=== PATIENT | female | born 1950 | race Asian ===

== ENCOUNTER 2022-04-16 05:50 | Day surgery (SDC) | payer MEDICAID ==
[~2022-04-16] VITALS: Ht 152.4 cm; Wt 61.8 kg
[2022-04-16] MEDS ORDERED: BENZOCAINE 20% 50 MCG/SPRAY 57 GM TP ONE (05:51)
[2022-04-16] MEDS ORDERED: LIDOCAINE 2% 11 ML JELLY TP ONE (05:51)
[2022-04-16] MEDS ORDERED: LIDOCAINE 4% 50 ML SOLUTION TP ONE (05:51)
[2022-04-16] MEDS ORDERED: SODIUM CHLORIDE 0.9% 1,000 ML IV ONE (06:30)
[2022-04-16 06:41] LABS: COVID AG,FIA SOURCE NASOPHARYNGEAL
[2022-04-16] MEDS ORDERED: ATOR40TA28 PO (06:59)
[2022-04-16] MEDS ORDERED: SODIUM CHLORIDE 0.9% 1,000 ML ONE (07:35)
[2022-04-16] MEDS ORDERED: FentaNYL CITRATE PF 100 MCG/2 ML VIAL ONE (07:43)
[2022-04-16] MEDS ORDERED: MIDAZOLAM HCL 5 MG/ML VIAL ONE (07:43)
[2022-04-16] MEDS ORDERED: SODIUM CHLORIDE 0.9% 10 ML ONE (07:46)
[2022-04-16] MEDS ORDERED: MethylPREDNISolone SOD SUCC 125 MG/2 ML VIAL IVP ONE (09:15)
[2022-04-16] MEDS ORDERED: MethylPREDNISolone SOD SUCC 125 MG/2 ML VIAL ONE (09:29)
[2022-04-16] MEDS ORDERED: OXYGEN THERAPY IH SCH (20:00)
== END 2022-04-16 11:20 | disposition home or self-care (01) ==
LOC: SURGERY 05:50
PROVIDERS: ATTEND Internal Medicine Critical Care Medicine
DX: J38.4 Edema of larynx (principal); B37.0 Candidal stomatitis; Z79.899 Other long term (current) drug therapy
CPT/HCPCS: 31623; 31624; 71045; 87015; 87070; 87101; 87206; 87220; 87426; 88112; 88184; 88185; 88305; 88312; C9803; J2250; J2930; J3010; J7030; Q9967; Z7610